=== PATIENT | female | born 1975 | race African-American/Black ===

== ENCOUNTER 2016-07-22 01:42 | Emergency (ER) | payer SELFPAY ==
[2016-07-22 03:24] LABS: Basophils % (Auto) 0.6 % (0.0-1.8); Eosinophils % (Auto) 0.9 % (0.0-4.3); Hematocrit 38.3 % (30.3-42.9); Hemoglobin 12.6 gm/dl (10.1-14.3); Mean Corpuscular HGB Conc 33 % (30-34); Mean Corpuscular Hemoglobin 31 pg (28-32); Mean Corpuscular Volume 94 fl (79-97); Platelet Count 243 K/mm3 (140-440); Red Blood Count 4.06 M/mm3 (3.65-5.03); Red Cell Distribution Width 12.9 % (13.2-15.2); White Blood Count 14.7 K/mm3 (4.5-11.0)
[2016-07-22 03:36] LABS: Alanine Aminotransferase 14 units/L (7-56); Albumin 4.2 g/dL (3.9-5); Albumin/Globulin Ratio 1.2 %; Alkaline Phosphatase 83 units/L (35-129); BUN/Creatinine Ratio 26.66; Bilirubin,Total 0.3 mg/dL (0.1-1.2); Blood Urea Nitrogen 16 mg/dL (7-17); Calcium 8.9 mg/dL (8.4-10.2); Carbon Dioxide 23 mmol/L (22-30); Chloride 100.4 mmol/L (98-107); Glucose 103 mg/dL (65-100); Lipase 31 units/L (13-60); Potassium 3.8 mmol/L (3.6-5.0); Sodium 139 mmol/L (137-145); Total Protein 7.6 g/dL (6.3-8.2)
[2016-07-22 03:40] LABS: Anion Gap 19 mmol/L
[2016-07-22 03:44] LABS: Bacteria,Urine 1+ /HPF (Negative); Bilirubin,Urine NEG (Negative); Blood,Urine MOD (Negative); Ketones,Urine NEG (Negative); Leukocyte Esterase,Urine LG (Negative); Nitrite,Urine NEG (Negative); Urobilinogen,Urine < 2.0 mg/dL (<2.0)
[2016-07-22] MEDS ORDERED: MORPHINE IV ONE (13:00)
[2016-07-22] MEDS ORDERED: ZOFRAN IV ONE (13:00)
[2016-07-22] MEDS ORDERED: ROCEPHIN/NS 1 GM/50 ML 50 ML IV ONE (13:03)
--- NOTE | 2016-07-22 13:08 | Emergency Department Report ---
HPI - General Chief Complaint: Abdominal Pain Time Seen by Provider: 07/22/16 12:54 - HPI HPI: Room 24 The patient is a 41-year-old female presenting with a chief complaint of abdominal pain. The patient states 4-5 days ago she developed intermittent right lower quadrant abdominal pain. Patient denies nausea vomiting or vaginal discharge but does admit to dysuria. Patient denies hematuria. Patient denies any history of fever. The patient currently gives her pain a score of 6/10. Location: Right lower quadrant Duration: 4-5 days Quality: Pain Severity: 6/10 Modifying factors: [see above] Context: [see above] Mode of transportation: [not driving] ED Past Medical Hx - Past Medical History Previous Medical History?: No - Surgical History Past Surgical History?: No - Family History Family history: no significant - Social History Smoking Status: Never Smoker Substance Use Type: None - Medications Home Medications: Home Medications Medication Instructions Recorded Confirmed Last Taken Type HYDROcodone/APAP 5-325 [[place] 1 - 2 each PO Q6HR PRN #14 tablet 07/22/16 Unknown Rx 5/325] Sulfamethoxazole/Trimethoprim 1 each PO BID #20 tablet 07/22/16 Unknown Rx [Bactrim DS TAB] ED Review of Systems ROS: Stated complaint: ABDOMINAL PAIN Other details as noted in HPI Comment: All other systems reviewed and negative Constitutional: denies: chills, fever Eyes: denies: eye pain, eye discharge, vision change ENT: denies: ear pain, throat pain Respiratory: denies: cough, shortness of breath, wheezing Cardiovascular: denies: chest pain, palpitations Endocrine: no symptoms reported Gastrointestinal: abdominal pain. denies: nausea, vomiting Genitourinary: dysuria. denies: hematuria, discharge Musculoskeletal: denies: back pain, joint swelling, arthralgia Neurological: denies: headache, weakness, paresthesias Psychiatric: denies: anxiety, depression Hematological/Lymphatic: denies: easy bleeding, easy bruising Physical Exam - Physical Exam Vital Signs: Vital Signs 07/22/16 02:43 Temperature 98.7 F Pulse Rate 81 Respiratory 18 Rate Blood Pressure 131/89 O2 Sat by Pulse 99 Oximetry Physical Exam: GENERAL: The patient is well-developed well-nourished female lying on stretcher not appearing to be in acute distress. [] HEENT: Normocephalic. Atraumatic. Extraocular motions are intact. Patient has moist mucous membranes. NECK: Supple. Trachea midline CHEST/LUNGS: Clear to auscultation. There is no respiratory distress noted. HEART/CARDIOVASCULAR: Regular. There is no tachycardia. There is no gallop rub or murmur. ABDOMEN: Abdomen is soft, with diffuse tenderness but greatest in the right lower quadrant. Patient has normal bowel sounds. There is no abdominal distention. SKIN: There is no rash. There is no edema. There is no diaphoresis. NEURO: The patient is awake, alert, and oriented. The patient is cooperative. The patient has normal speech MUSCULOSKELETAL: There is right CVA tenderness. There is no evidence of acute injury. ED Course Vital Signs 07/22/16 02:43 Temperature 98.7 F Pulse Rate 81 Respiratory 18 Rate Blood Pressure 131/89 O2 Sat by Pulse 99 Oximetry ED Medical Decision Making - Lab Data Result diagrams: 07/22/16 03:08 07/22/16 03:08 Laboratory Tests 07/22/16 07/22/16 07/22/16 03:08 03:08 Unknown WBC 14.7 H RBC 4.06 Hgb 12.6 Hct 38.3 MCV 94 MCH 31 MCHC 33 RDW 12.9 L Plt Count 243 Lymph % (Auto) 20.2 [place] % (Auto) 7.0 Eos % (Auto) 0.9 Baso % (Auto) 0.6 Lymph # 3.0 [place] # 1.0 H Eos # 0.1 Baso # 0.1 Seg Neutrophils % 71.3 H Seg Neutrophils # 10.5 H Sodium 139 Potassium 3.8 Chloride 100.4 Carbon Dioxide 23 Anion Gap 19 BUN 16 Creatinine 0.6 L Estimated GFR > 60 BUN/Creatinine Ratio 26.66 Glucose 103 H Calcium 8.9 Total Bilirubin 0.3 AST 17 ALT 14 Alkaline Phosphatase 83 Total Protein 7.6 Albumin 4.2 Albumin/Globulin Ratio 1.2 Lipase 31 Urine Color Yellow Urine Turbidity Clear Urine pH 6.0 Ur Specific [place] 1.011 Urine Protein 30 mg/dl Urine Glucose (UA) Neg Urine Ketones Neg Urine Blood Mod Urine Nitrite Neg Ur Reducing Substances Not Reportable Urine Bilirubin Neg Urine Ictotest Not Reportable Urine Urobilinogen < 2.0 Ur Leukocyte Esterase Lg Urine WBC (Auto) 163.0 H Urine RBC (Auto) 27.0 U Epithel Cells (Auto) 1.0 Urine Bacteria (Auto) 1+ Urine HCG, Qual Negative - Radiology Data Radiology results: report reviewed (CT abdomen and pelvis), image reviewed (CT abdomen and pelvis) CT abdomen and pelvis (read by radiologist)-normal appendix. 0.7 cm left ovarian cyst. Mild urothelial thickening and enhancement in the right renal collecting system of uncertain significance. Recently passed stone? There is no convincing evidence for cystitis or pyelonephritis. - Differential Diagnosis UTI, pyelonephritis, acute appendicitis, renal colic Critical care attestation.: If time is entered above; I have spent that time in minutes in the direct care of this critically ill patient, excluding procedure time. ED Disposition Clinical Impression: Pyelonephritis, Acute right flank pain Disposition: DISCHARGED TO HOME OR SELFCARE Is pt being admited?: No Does the pt Need Aspirin: No Condition: Stable Instructions: Abdominal Pain (ED) Additional Instructions: Return to the emergency department immediately should you develop worsening symptoms, fever, inability to tolerate food or liquid or any other concerns. Prescriptions: HYDROcodone/APAP 5-325 [[place] 5/325] 1 - 2 each PO Q6HR PRN #14 tablet PRN Reason: Pain Sulfamethoxazole/Trimethoprim [Bactrim DS TAB] 1 each PO BID #20 tablet Referrals: PRIMARY CARE, [Primary Care Provider] - 3-5 Days Time of Disposition: 15:00
--- NOTE | 2016-07-22 14:51 | Cat Scan Report ---
CT SCAN OF THE ABDOMEN AND PELVIS WITH CONTRAST: HISTORY: Right lower quadrant abdominal pain. TECHNIQUE: Helical CT in 1.25mm intervals following IV contrast. Sagittal and coronal reconstructions. FINDINGS: The liver is normal in size and is without focal defect. No gallstones or biliary dilatation are noted. The spleen and pancreas demonstrate a normal size and attenuation with no evidence of abnormal mass. The kidneys are normal in size and position with no evidence of hydronephrosis or mass. There is mild urothelial thickening and enhancement in the right renal collecting system. No ureteral stone is appreciated. No signs of pyelonephritis. The adrenal glands are normal. There is no intestinal obstruction or ascites. Normal appendix. The abdominal aorta is normal. The uterus and right ovary are unremarkable. A 1.7 cm peripherally enhancing cyst in the left ovary is noted. There is no evidence of peritoneal air or fluid. There is no evidence of any abnormal masses or fluid collections within the pelvis. No adenopathy is identified. The bladder is normal. IMPRESSION: 1.7 cm left ovarian cyst. Mild urothelial thickening and enhancement in the right renal collecting system of uncertain significance. Recently passed stone? There is no convincing evidence for cystitis or pyelonephritis.
[2016-07-22] MEDS ORDERED: REGLAN ONE (15:53)
[2016-07-22] MEDS ORDERED: REGLAN IV ONE (15:59)
[2016-07-22 16:36] VITALS: BP 95/61
== END 2016-07-22 16:37 | disposition home or self-care (01) ==
LOC: ED 01:42
DX: N12 Tubulo-interstitial nephritis, not specified as acute or chronic (principal)
CPT/HCPCS: 36415; 74177; 80053; 81001; 81025; 83690; 85025; 96365; 96366; 96375; 99284; J0696; J2270; J2405; J2765; Q9967